=== PATIENT | male | born 1950 | race Caucasian/White ===

== ENCOUNTER → 2019-02-20 07:50 | Outpatient (CLI) | payer MEDICARE, OTHER, SELFPAY ==
[2019-02-20 09:51] LABS: Thyroid Stimulating Hormone 6.56 uIU/mL (0.47-4.68)
== END ==
PROVIDERS: PCP Family Medicine; Visit Provider Family Medicine
DX: E03.9 Hypothyroidism, unspecified (principal)
CPT/HCPCS: 36415; 84443

== ENCOUNTER → 2019-08-15 15:27 | Outpatient (CLI) | payer MEDICARE, OTHER, SELFPAY ==
[2019-08-15 16:39] LABS: TSH w/ Reflex to FT4 2.64 uIU/mL (0.47-4.68)
== END ==
PROVIDERS: PCP Family Medicine; Visit Provider Family Medicine
DX: E03.9 Hypothyroidism, unspecified (principal)
CPT/HCPCS: 36415; 84443

== ENCOUNTER → 2022-04-27 10:49 | Outpatient (CLI) | payer MEDICARE, OTHER, SELFPAY ==
--- NOTE | 2022-04-27 | DI.RAD.S_ITS ---
PROCEDURE: XR KNEE RT 3V INDICATIONS: RIGHT KNEE PAIN TECHNIQUE: 3 views of the knee were acquired. COMPARISON: None. FINDINGS: Bones: No fractures or dislocations. Hfvs-fh-rbawzhsp tricompartmental osteoarthritis is seen more prominent in medial femoral tibial compartment. No suspicious bony lesions. Soft tissues: Small to moderate suprapatellar joint effusion is noted. No suspicious soft tissue calcifications. IMPRESSION: No right knee fracture or dislocation. Mczz-kd-sibspclb tricompartmental osteoarthritis and small to moderate joint effusion. Dictated by: Aditya Rojo M.D. on 04/27/2022 at 11:55 Approved by: Aditya Rojo M.D. on 04/27/2022 at 11:56
== END ==
PROVIDERS: PCP Family Medicine; Referring Provider Nurse Practitioner Family; Visit Provider Nurse Practitioner Family
DX: M25.561 Pain in right knee (principal); M17.11 Unilateral primary osteoarthritis, right knee; M25.461 Effusion, right knee
CPT/HCPCS: 73562

== ENCOUNTER → 2023-05-31 11:14 | Outpatient (CLI) | payer MEDICARE, OTHER, SELFPAY ==
--- NOTE | 2023-05-31 | DI.RAD.S_ITS ---
PROCEDURE: XR HIP W PEL IF DONE BILAT 2V INDICATIONS: Bilateral primary osteoarthritis of hip TECHNIQUE: AP pelvis with lateral view(s) of the right and left hip(s). COMPARISON: [facility], , [id number] W PEL IF PERFORMED, 11/09/2016, 10:10. FINDINGS: Bones: No fractures or dislocations. Pelvic ring appears intact. No suspicious bony lesions. Mild bilateral hip joint space narrowing and spurring. Soft tissues: The visualized bowel gas pattern is normal. No suspicious soft tissue calcifications. IMPRESSION: No acute fracture or dislocation identified. Degenerative changes of both hips present. Dictated by: Francesco Pablo M.D. on 05/31/2023 at 17:42 Approved by: Francesco Pablo M.D. on 05/31/2023 at 17:44
== END ==
PROVIDERS: PCP Family Medicine; Referring Provider Chiropractor; Visit Provider Chiropractor
DX: M16.0 Bilateral primary osteoarthritis of hip (principal)
CPT/HCPCS: 73521

== ENCOUNTER → 2023-07-05 07:31 | Outpatient (CLI) | payer MEDICARE, OTHER, SELFPAY ==
[2023-07-05 08:51] LABS: Add Manual Diff / Slide Review NO; Basophils Absolute Auto 100 /uL (0-100); Basophils Percent Auto 1.2 % (0-2); Eosinophils Absolute Auto 100 /uL (0-450); Eosinophils Percent Auto 1.7 % (2-4); Hematocrit 46.2 % (41-53); Hemoglobin 15.8 g/dL (13.5-17.5); Lymphocytes Absolute Auto 1500 /uL (1100-4500); Lymphocytes Percent Auto 29.4 % (25-40); Mean Corpuscular HGB Conc 34.3 % (30-36); Mean Corpuscular Hemoglobin 32.2 PG (26-34); Monocytes Absolute Auto 700 /uL (0-900); Neutrophils Absolute Auto 2800 /uL (1500-7000); Neutrophils Percent Auto 54.7 % (50-75); Platelet Count 189 X10^3/uL (150-400); Red Blood Cell Count 4.91 X10^6/uL (4.5-5.9); Red Cell Distribution Width 13.5 % (11.6-14.8); White Blood Cell Count 5.1 X10^3/uL (4.5-11.0)
[2023-07-05 09:16] LABS: Alanine Aminotransferase 28 IU/L (<50); Albumin Globulin Ratio 1.3 (1.0-2.8); Alkaline Phosphatase 75 U/L (38-126); Aspartate Aminotransferase 28 IU/L (17-59); Bilirubin Total 1.1 mg/dL (0.2-1.3); Blood Urea Nitrogen 16 mg/dL (9-20); Calcium 9.6 mg/dL (8.4-10.2); Carbon Dioxide 27 mmol/L (22-32); Chloride 103 mmol/L (98-107); Cholesterol 172 mg/dL (140-199); Estimated Glomerular Filt Rate > 60 mL/min (>60); Globulin 3.1 g/dL (1.7-4.1); Glucose 95 mg/dL (80-110); HDL Cholesterol 61 mg/dL (40-60); HEMOLYSIS < 15 (0-50); LDL Cholesterol Calculated 101 mg/dL (<100); Lipase 71 U/L (23-300); Potassium 4.4 mmol/L (3.4-5.1); Sodium 137 mmol/L (137-145); Total Protein 7.1 g/dL (6.3-8.2); Triglycerides 50 mg/dL (35-150)
[2023-07-05 09:24] LABS: High Sensitivity CRP - Cardiac 0.7 mg/L (1.0-3.0)
[2023-07-05 09:48] LABS: Erythrocyte Sedimentation Rate 1 MM/HR (0-15)
[2023-07-05 10:03] LABS: Hemoglobin A1C% w Est Avg Glu 4.7 % (4.0-6.0)
[2023-07-07 01:37] LABS: Homocysteine 12.2 umol/L (0.0-19.2)
[2023-07-07 10:09] LABS: Insulin Level Total 11.9 uIU/mL (2.6-24.9)
[2023-07-10 13:24] LABS: Leptin 7.5 ng/mL (.)
== END ==
PROVIDERS: PCP Family Medicine; Referring Provider Nurse Practitioner Family; Visit Provider Nurse Practitioner Family
DX: R53.83 Other fatigue (principal); Z51.81 Encounter for therapeutic drug level monitoring; E78.00 Pure hypercholesterolemia, unspecified; R10.9 Unspecified abdominal pain; E34.9 Endocrine disorder, unspecified; E66.9 Obesity, unspecified
CPT/HCPCS: 36415; 80053; 80061; 83036; 83090; 83520; 83525; 83690; 85025; 85651; 86140

== ENCOUNTER → 2024-06-21 14:32 | Outpatient (CLI) | payer MEDICARE, OTHER, SELFPAY ==
--- NOTE | 2024-06-21 14:34 | DI.RAD.S_ITS ---
PROCEDURE: XR KNEE RT 3V INDICATIONS: Pain in right knee TECHNIQUE: 3 views of the knee were acquired. COMPARISON: [facility], , XR KNEE RT 3V, 04/27/2022, 10:44. FINDINGS: Bones: No fractures or dislocations. No suspicious bony lesions. Tricompartmental joint space narrowing with associated osteophytosis. Soft tissues: No joint effusion. No suspicious soft tissue calcifications. IMPRESSION: Jnte-mo-ftgxxnvu tricompartmental osteoarthritis. Kellgren-Blayne Grade 2. Dictated by: Andrew Gallardo M.D. on 06/23/2024 at 8:27 Approved by: Andrew Gallardo M.D. on 06/23/2024 at 8:29
== END ==
PROVIDERS: PCP Family Medicine; Referring Provider Nurse Practitioner Family; Visit Provider Nurse Practitioner Family
DX: M17.11 Unilateral primary osteoarthritis, right knee (principal); M25.561 Pain in right knee
CPT/HCPCS: 73562

== ENCOUNTER → 2025-03-18 07:42 | Outpatient (CLI) | payer MEDICARE, OTHER, SELFPAY ==
--- NOTE | 2025-03-18 07:52 | EKG_ITS ---
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
== END ==
LOC: RESP 07:45
PROVIDERS: PCP Registered Nurse; Referring Provider Internal Medicine Gastroenterology; Visit Provider Internal Medicine Gastroenterology
DX: Z01.810 Encounter for preprocedural cardiovascular examination (principal)
CPT/HCPCS: 93005

== ENCOUNTER 2025-04-16 09:47 | Day surgery (SDC) | payer MEDICARE, OTHER, SELFPAY ==
--- NOTE | 2025-04-16 10:01 | PM.HP.IH.1 ---
History of Present Illness History of Present Illness Date Patient Seen: 04/16/25 Chief complaint: Screening Colonoscopy Narrative: Screening colonoscopy last many years ago [facility] Surgical History (Updated 08/27/19 @ 11:28 by Flo Farnsworth MD) History of cardiac radiofrequency ablation (RFA) Family History (Updated 02/22/15 @ 00:00 by Conversion Provider) Father Hypertension Mother Cancer Social History marital status: household members: spouse Smoking Status: Never smoker alcohol intake: current substance use type: does not use Meds Home Medications and Allergies Home Medications ?Medication ?Instructions ?Recorded ?Confirmed ?Type MULTIVITAMIN (Multivitamin 1 tab PO EVERY OTHER DAY ##0 07/21/10 08/27/19 History -) VITAMIN C - 1,000 mg PO Q DAY ##0 07/21/10 08/27/19 History (VITAMIN C) diclofenac sodium 1 % topical gel 2 g topical 4XD PRN knee pain. 03/14/25 03/14/25 History levothyroxine 200 mcg tablet 200 mcg PO QAM 03/14/25 04/16/25 History liothyronine 5 mcg tablet 15 mcg PO QAM 03/14/25 04/16/25 History Allergies Allergy/AdvReac Type Severity Reaction Status Date / Time Penicillins Allergy Severe SWELLING Verified 04/16/25 10:00 venom-honey bee (BEE VENOM Allergy Severe Anaphylaxis Verified 04/16/25 10:00 (HONEY BEE)) whey (WHEY) Allergy Severe SWELLING Verified 04/16/25 10:00 amoxicillin Allergy Intermediate swelling Verified 04/16/25 10:00 Cephalosporins Allergy Intermediate Verified 04/16/25 10:00 Assessment & Plan Assessment & Plan narrative: Follow-up screening colonoscopy. Risks, benefits, alternatives have been explained. Time-Based Coding :: [TOTAL MINUTES] spent with patient and on the chart (including review of chart, obtaining history, exam, reviewing outside data, placing orders, documenting exam and treatment plan, and counseling patient) on [DATE]. PROFEE Licensed Audiologist Document charge(s): No
--- NOTE | 2025-04-16 10:01 | PM.OP.COLON ---
Operative Date/Time/Diagnoses Date of procedure: 04/16/25 Time of procedure: 10:53 Pre-op diagnosis: See indication and findings Post-op diagnosis: same Procedure & Clinicians Study performed: Colonoscopy Same procedure(s) as scheduled: Yes Indications: Screening Surgeon: Rosalinda Pichardo Anesthesia Type: Other Procedure Notes Procedure in detail: After informed consent was obtained the patient was placed in left lateral decubitus position. Video colonoscope was inserted in the rectum slowly advanced cecum. Preparation was good. On slow withdrawal mucosa was carefully examined. The scope was removed. The patient tolerated procedure well. Blood loss none Complications none Sedation mac Findings 1. Normal colonoscopy to cecum This is probably patient's last colonoscopy as he would be 84 years old at is next interval.
[2025-04-16 10:02] VITALS: BP 133/72; PULSE 87; RESP 16; TEMP 36.5; O2SAT 98
[2025-04-16] MEDS: LACTATED RINGERS 1,000 ML 42 ML IV (10:17)
[2025-04-16 10:55] VITALS: BP 99/64; PULSE 73; RESP 13; TEMP 36.2; O2SAT 96
[2025-04-16 11:00] VITALS: BP 99/66; PULSE 18; RESP 76; O2SAT 95
[2025-04-16 11:05] VITALS: BP 115/82; PULSE 76; RESP 17; O2SAT 95
== END 2025-04-16 11:32 | disposition home or self-care (01) ==
PROVIDERS: PCP Registered Nurse; Referring Provider Internal Medicine Gastroenterology; Visit Provider Internal Medicine Gastroenterology
PROC: 0DJD8ZZ Inspection of Lower Intestinal Tract, Via Natural or Artificial Opening Endoscopic (ICD-10-PCS; CPT 45378; principal; 2025-04-16 11:00)
DX: Z12.11 Encounter for screening for malignant neoplasm of colon (principal)
CPT/HCPCS: G0121; J2704

== ENCOUNTER → 2025-07-14 15:46 | Outpatient (CLI) | payer MEDICARE, OTHER, SELFPAY ==
--- NOTE | 2025-07-14 15:48 | DI.RAD.S_ITS ---
PROCEDURE: XR HAND LT MIN 3V INDICATIONS: ARTHRITIS L THUMB TECHNIQUE: 3 views of the hand(s) acquired. COMPARISON: None. FINDINGS: Bones: No fractures or dislocations. Carpal bones are normally aligned. No suspicious bony lesions. Moderate-severe background polyarticular degenerative changes of the left hand and wrist. Findings are most pronounced in the distal interphalangeal joints of the 2nd through 4th fingers as well as the proximal interphalangeal joints of the 3rd finger. Additionally, advanced degenerative changes of the thumb and 2nd metacarpophalangeal joints as well as the interphalangeal joint of the thumb. There are severe degenerative changes of the left 1st carpometacarpal joint. Juxta-articular lucencies noted over the 3rd proximal interphalangeal joint, 2nd proximal interphalangeal joint, thumb metacarpophalangeal joint, and possibly the 2nd metacarpophalangeal joint. Soft tissues: No suspicious soft tissue calcifications. IMPRESSION: Left hand without acute osseous abnormalities. Advanced polyarticular background degenerative changes of the left hand and wrist as described above. A few juxta-articular lucencies favored to represent subchondral degenerative although osseous erosions not excluded. Dictated by: Fermín Corrales M.D. on 07/14/2025 at 18:09 Approved by: Fermín Corrales M.D. on 07/14/2025 at 18:13
== END ==
PROVIDERS: PCP Registered Nurse; Referring Provider Registered Nurse; Visit Provider Registered Nurse
DX: M18.12 Unilateral primary osteoarthritis of first carpometacarpal joint, left hand (principal); M19.032 Primary osteoarthritis, left wrist
CPT/HCPCS: 73130